=== PATIENT | female | born 1950 | race Caucasian/White ===

== ENCOUNTER 2021-08-23 11:49 | Observation (INO) | payer MEDICARE, BC ==
[2021-08-23] MEDS ORDERED: Acetaminophen 500 MG Tab PO ONE (14:29)
[2021-08-23] MEDS ORDERED: Iopamidol 612 MG/ML 100 ML Bottle IVPUSH ONE (15:33)
[2021-08-23] MEDS ORDERED: cefTRIAXone 1 GM in Sodium Chloride 0.9% 50 ML IV ONE (16:43)
[2021-08-23] MEDS ORDERED: Clindamycin in 0.9 % Sod Chlor 600 MG in Premix Bag 1 BAG IV ONE ×4 (16:44→17:40)
[2021-08-23] MEDS ORDERED: Sodium Chloride 0.9% 10 ML Syringe FLUSH PRN (18:07)
[2021-08-23] MEDS ORDERED: Docusate Sodium 100 MG Cap PO PRN (18:30)
[2021-08-23] MEDS ORDERED: Acetaminophen 325 MG Tab PO PRN (18:30)
[2021-08-23] MEDS ORDERED: Acetaminophen/HYDROcodone 325-5 MG Tab PO PRN (18:30)
[2021-08-23] MEDS ORDERED: Ondansetron 4 MG/2 ML SDV IVPUSH PRN (18:30)
[2021-08-23] MEDS ORDERED: Zolpidem 5 MG Tab PO PRN (18:30)
[2021-08-23] MEDS: Piperacillin/Tazobactam 4.5 GM in Sodium Chloride 0.9% 100 ML IV SCH (20:18)
[2021-08-24] MEDS: Piperacillin/Tazobactam 4.5 GM in Sodium Chloride 0.9% 100 ML IV SCH ×2 (02:41→08:28)
[2021-08-24] MEDS ORDERED: Hydrochlorothiazide 25 MG Tab PO SCH (09:00)
[2021-08-24] MEDS ORDERED: Multivitamin Tab PO SCH (09:00)
[2021-08-24] MEDS ORDERED: Lisinopril 20 MG Tab PO SCH (09:00)
[2021-08-24] MEDS ORDERED: Enoxaparin 40 MG/0.4 ML Syringe SUBCUT SCH (09:00)
== END 2021-08-24 11:58 | disposition home or self-care (01) ==
LOC: DL.ED 11:49 → DL.MS 16:50 → UNDOADMOB 17:12 → DL.MS 19:06 → UNDODISOB 08-24 11:58
PROVIDERS: ADMIT Internal Medicine; ATTEND Internal Medicine
DX: K11.21 Acute sialoadenitis (principal); I10 Essential (primary) hypertension; J45.909 Unspecified asthma, uncomplicated; E66.9 Obesity, unspecified; Z90.49 Acquired absence of other specified parts of digestive tract; Z88.5 Allergy status to narcotic agent; Z79.899 Other long term (current) drug therapy; Z20.822 Contact with and (suspected) exposure to COVID-19; Z68.39 Body mass index [BMI] 39.0-39.9, adult
CPT/HCPCS: 36415; 70491; 80053; 83605; 85025; 86140; 96365; 96366; 96367; 96372; 96374; 96375; 96376; 99284-25; A9270-GY; G0378; J0696; J1650; J2543; J3490; Q9967; U0002